=== PATIENT | female | born 1985 | race Two or more races ===

== ENCOUNTER 2021-07-09 13:00 | Inpatient (IN) | payer OTHER ==
[~2021-07-09] VITALS: Ht 160 cm; Wt 90.7 kg
[2021-07-14] MEDS ORDERED: PRENATAL TABLE1 EAC1 PO ×2 (21:57→21:58)
[2021-07-14] MEDS ORDERED: SYNTHROID75 MCG PO (21:59)
[2021-07-18] MEDS ORDERED: IBU800 MG PO ×2 (08:38→09:07)
[2021-07-18] MEDS ORDERED: COLACE100 MG PO ×2 (08:38→09:08)
[2021-07-18] MEDS ORDERED: SIMETHICONE125 M1 PO ×2 (08:39→09:09)
== END 2021-07-18 12:47 | disposition home or self-care (01) | DRG 788 ==
LOC: OB/GYN 07-14 20:13 → LDR 07-14 20:13 → OB/GYN 07-15 06:58 → LDR 07-25 13:00
PROVIDERS: ADMIT Obstetrics & Gynecology; ATTEND Obstetrics & Gynecology
PROC: 10D00Z1 Extraction of Products of Conception, Low, Open Approach (ICD-10-PCS; principal; 2021-07-14)
PROC: 4A1HXFZ Monitoring of Products of Conception, Cardiac Rhythm, External Approach (ICD-10-PCS; 2021-07-14)
DX: O62.1 Secondary uterine inertia (principal); O65.1 Obstructed labor due to generally contracted pelvis; O42.013 Preterm premature rupture of membranes, onset of labor within 24 hours of rupture, third trimester; O24.420 Gestational diabetes mellitus in childbirth, diet controlled; O99.284 Endocrine, nutritional and metabolic diseases complicating childbirth; E03.9 Hypothyroidism, unspecified; Z3A.36 36 weeks gestation of pregnancy; Z37.0 Single live birth; Z86.16 Personal history of COVID-19